=== PATIENT | male | born 1945 | race Caucasian/White ===

== ENCOUNTER → 2019-04-04 10:18 | Outpatient (BNVA) | payer MEDICARE, OTHER, SELFPAY | PROVIDERS: Family Provider Family Medicine; PCP Family Medicine; Visit Provider Family Medicine | DX: I11.0 Hypertensive heart disease with heart failure (principal); I50.30 Unspecified diastolic (congestive) heart failure; B37.2 Candidiasis of skin and nail; E11.9 Type 2 diabetes mellitus without complications | CPT/HCPCS: 80048 ==

== ENCOUNTER → 2019-07-05 10:42 | Outpatient (BNVA) | payer MEDICARE, OTHER, SELFPAY | PROVIDERS: Family Provider Family Medicine; PCP Family Medicine; Visit Provider Family Medicine | DX: I10 Essential (primary) hypertension (principal); E11.9 Type 2 diabetes mellitus without complications; K21.9 Gastro-esophageal reflux disease without esophagitis; E78.5 Hyperlipidemia, unspecified; L30.9 Dermatitis, unspecified; K22.2 Esophageal obstruction; E78.2 Mixed hyperlipidemia | CPT/HCPCS: 80053; 80061; 83036 ==

== ENCOUNTER → 2019-12-31 10:40 | Outpatient (BNVA) | payer MEDICARE, OTHER, SELFPAY | PROVIDERS: Family Provider Family Medicine; PCP Family Medicine; Visit Provider Family Medicine | DX: E11.9 Type 2 diabetes mellitus without complications (principal); I10 Essential (primary) hypertension; E61.1 Iron deficiency; K21.9 Gastro-esophageal reflux disease without esophagitis; Z23 Encounter for immunization; K22.2 Esophageal obstruction; K63.5 Polyp of colon; E78.2 Mixed hyperlipidemia; R74.8 Abnormal levels of other serum enzymes | CPT/HCPCS: 80048; 83036; 85025 ==

== ENCOUNTER 2020-06-13 12:23 | Emergency (ER) | payer MEDICARE, OTHER, SELFPAY ==
[2020-06-13 12:35] VITALS: BP 160/95; PULSE 81; RESP 18; TEMP 36.8; O2SAT 97; BMI 23.7
[2020-06-13 12:54] VITALS: BP 164/90; PULSE 80; RESP 16; O2SAT 97
--- NOTE | 2020-06-13 12:54 | CT_ITS ---
WS: [id number] CT HEAD NONCONTRAST HISTORY: Symptoms of Acute Stroke TECHNIQUE: Contiguous axial imaging performed through the brain in 2.5 mm imaging. Bone and soft tiss ue windows. Sagittal and coronal reformats reviewed. All CT scans at [facility] use at ast one of these dose optimization techniques: automated exposure control; mA and/or kV adjustment pe r patient size (includes targeted exams where dose is matched to clinical indication); or iterative r econstruction. DLP: 843.01 mGy.cm COMPARISON: None available. No acute intracranial hemorrhage, midline shift or mass effect. Mild atrophy and chronic ischemic disease. No evidence for acute sulcal effacement or midline shift. Small lacunar infarcts in the insular ribbons bilaterally. Ventricles: Normal. Small retrocerebellar arachnoid cyst. Paranasal sinuses: As visualized are clear. Mastoid air cells: Well pneumatized. Calvarium and scalp: Skull is intact with no soft tissue edema or swelling. CT/CT head wo con* [id number] IMPRESSION: 1. No evidence for an acute hemorrhage or infarct. No sulcal effacement or camrel ma. 2. Mild atrophy.
--- NOTE | 2020-06-13 12:54 | ECG_ITS ---
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 Measurements Intervals [place] Rate: 75 P: 48 FL: 178 QRS: 20 QRSD: 93 T: 76 QT: 373 QTc: 418 Interpretive Statements SINUS RHYTHM No previous ECG available for comparison Electronically Signed On 06-13-2020 18:10:49 CDT by Cherrie Glaser M.D. [id number]
[2020-06-13 13:08] LABS: Basophils % 0.6 %; Eosinophils # 0.2 10^3/uL (0.0-0.8); Eosinophils % 2.3 %; Hemoglobin 13.4 g/dL (11.7-16.6); Lymphocytes # 0.8 10^3/uL (0.8-4.8); Lymphocytes % 12.3 %; Mean Corpuscular HGB Conc 33.5 g/dL (30.0-36.0); Mean Corpuscular Hemoglobin 28.2 pg (28.0-34.0); Mean Platelet Volume 9.9 fL (7.4-10.4); Monocytes # 0.6 10^3/uL (0.2-0.9); Monocytes % 8.9 %; Neutrophils # 5.16 10^3/uL (1.8-7.7); Neutrophils % 75.3 %; Nucleated Red Blood Cells % 0 %; Platelet Count 256 10^3/cmm (130-400); Red Blood Count 4.76 10^6/uL (4.1-5.3); Red Cell Distribution Width 13.5 % (12.1-15.1); White Blood Count 6.9 10^3/uL (4.0-10.0)
[2020-06-13 13:14] LABS: INR 1.05 (0.8-1.2)
[2020-06-13 13:15] LABS: Partial Thromboplastin Time 25.2 SECONDS (23.9-36.7)
[2020-06-13 13:18] LABS: Alanine Aminotransferase 17 U/L (0-41); Albumin Level 4.6 g/dL (3.5-5.2); Alkaline Phosphatase 112 IU/L (40-130); Anion Gap 15.9 (5-19); Aspartate Amino Transferase 18 U/L (0-40); Blood Urea Nitrogen 17 mg/dL (8-23); Calcium 8.6 mg/dL (8.5-10.5); Carbon Dioxide 23 mmol/L (22-29); Chloride 104 mmol/L (98-107); Globulin 3.4 g/dL (1.3-4.6); Glucose 125 mg/dL (65-115); Osmolality Calculated 291 mOsm/kg (285-295); Potassium 3.9 mmol/L (3.5-5.1); Sodium 139 mmol/L (136-145)
--- NOTE | 2020-06-13 13:19 | ED_ITS ---
HPI - Neuro Symptoms/Deficit General: Chief Complaint: Neuro Symptoms/Deficit Stated Complaint: Both arms numb/Lt side numbness Time Seen by Provider: 06/13/20 12:41 History of Present Illness: HPI Narrative: 75-year-old male presents emergency room with complaint of bilateral arm numbness that began approximately 20 to 21 hours ago. Began yesterday morning around 4 AM shortly after he got up it persisted throughout the day but seems to have been getting better. He had an episode this morning around 4 AM 7 hours prior to presentation where he fell shortly after getting up out of bed to go to the bathroom he had bent over in the bathroom lost his balance and fell over he hit his head but was not lost out he is not had any vomiting or diarrhea. Onset (ago): hour(s) (21 hrs) Timing confirmed by: spouse Location: left arm and right arm History of same: Yes Severity: mild Quality: numb and tingling Relieving factors: time Exacerbating factors: none Context: sudden onset On Anticoagulants: No Associated symptoms: Reports tingling; Deny chest pain, cough, diaphoresis, fevers/chills, headache(s), anorexia, malaise, nausea, seizures, short of breath, syncope, vertigo or vomiting Treatments Prior to Arrival: none Review of Systems Const: Denies: malaise or diaphoresis ENMT: Denies: throat pain, ear or mastoid pain, nasal discharge or nasal congestion Card: Denies: chest pain or syncope Resp: Denies: dyspnea, productive cough or non-productive cough GI: Denies: nausea or vomiting : Denies: flank pain, dysuria, urinary frequency or urinary urgency Skin/Breast: Denies: rash or pruritus Neuro: Denies: headache(s) or vertigo [facility] ED PFSH: Medical History Benign hypertension Controlled type 2 diabetes mellitus GERD with stricture Hyperlipidemia Stroke determined by clinical assessment Surgical History S/P cataract extraction Family History Father Cancer Mother Hypertension Diabetes Son Hypertension Social History Smoking and tobacco status: never smoked Alcohol intake: never Current gender identity: Male NIH stroke score NIHSS: Level Of Consciousness - 1a: 0 Level Of Consciousness Questions - 1b: Both Correct Level Of Consciousness Commands - 1c: Both Correct Best Gaze - 2: Normal Visual Nesbitt - 3: No Visual Loss Facial Palsy - 4: Normal Motor Arm Right - 5: No Drift Motor Arm Left - 5: No Drift Motor Leg Right - 6: No Drift Motor Leg Left - 6: No Drift Limb Ataxia - 7: Absent Sensory - 8: Normal Best Language - 9: No Aphasia Dysarthia - 10: Normal Extinction And Inattention - 11: 0 Score: Total Score: 0 Physical Exam Const: COMMON NORMALS: no acute distress GENERAL APPEARANCE: cooperative and comfortable ORIENTATION/CONSCIOUSNESS: Yes awake, Yes oriented to person, Yes oriented to place and Yes oriented to time HENMT: COMMON NORMALS: normocephalic, atraumatic and hearing grossly normal bilaterally HEAD & SCALP: normocephalic and atraumatic Neck/C-Spine: COMMON NORMALS: no JVD Resp: COMMON NORMALS: normal respiratory effort, No retractions, No use of accessory muscles and clear to auscultation bilaterally AUSCULTATION: clear to auscultation bilaterally Cardio: COMMON NORMALS: no JVD, regular rate, regular rhythm and No murmurs present (Cardio) RATE: regular rate RHYTHM: regular rhythm GI: COMMON NORMALS: Soft to palpation and No hepatosplenomegaly present AUSCULTATION: Yes normoactive bowel sounds PALPATION: Yes Soft to palpation, No Tenderness to palpation present (GI), No Guarding due to palpation present (GI) and Yes No hepatosplenomegaly present Extremity: COMMON NORMALS: normal to inspection, capillary refill normal, no clubbing, cyanosis or edema, no calf tenderness and no pedal edema Neuro: SENSORIUM/ORIENTATION: Yes oriented to person, Yes oriented to place and Yes oriented to time Skin: COMMON NORMALS: no rashes or lesions noted GENERAL SKIN EXAM: no rashes or lesions noted Course Vital Signs: Vital signs: Vital Signs Temperature 98.3 F 06/13/20 12:35 Pulse Rate 72 06/13/20 15:13 Respiratory Rate 18 06/13/20 15:13 Blood Pressure 145/73 06/13/20 15:13 Pulse Oximetry 98 06/13/20 15:13 MDM - Neuro Symptoms/Deficit MDM Narrative: Medical decision making narrative: Symptoms of pretty much resolved at this point they began almost [address] the head is unremarkable and may have a cervical nerve impingement causing the radicular arm pain his stroke score is 0 I think we can safely send him home we will set up for echo and carotids MRI of the head have him take a baby aspirin daily return if has problems follow-up with his primary care doctor may need further evaluation of his symptoms persist if the other initial secondary evaluations are negative. Lab Data: Labs: Lab Results 06/13/20 06/13/20 06/13/20 Range/Units 12:40 12:40 12:40 WBC 6.9 (4.0-10.0) 10^3/ uL RBC 4.76 (4.1-5.3) 10^6/u L Hgb 13.4 (11.7-16.6) g/dL Hct 40.0 L (42.0-52.0) % MCV 84.0 (80-94) fL MCH 28.2 (28.0-34.0) pg MCHC 33.5 (30.0-36.0) g/dL RDW 13.5 (12.1-15.1) % Plt Count 256 (130-400) 10^3/c mm MPV 9.9 (7.4-10.4) fL Neut % (Auto) 75.3 % Lymph % (Auto) 12.3 % [place] % (Auto) 8.9 % Eos % (Auto) 2.3 % Baso % (Auto) 0.6 % Neut # (Auto) 5.16 (1.8-7.7) 10^3/u L Lymph # (Auto) 0.8 (0.8-4.8) 10^3/u L [place] # (Auto) 0.6 (0.2-0.9) 10^3/u L Eos # (Auto) 0.2 (0.0-0.8) 10^3/u L Baso # (Auto) 0.0 (0.0-0.1) 10^3/u L Nucleated RBC % (a uto) 0 % Nucleated RBCs # 0.0 /100WBC PT 14.10 (12.1-14.9) SECO NDS INR 1.05 (0.8-1.2) APTT 25.2 (23.9-36.7) SECO NDS Sodium 139 (136-145) mmol/L Potassium 3.9 (3.5-5.1) mmol/L Chloride 104 (98-107) mmol/L Carbon Dioxide 23 (22-29) mmol/L Anion Gap 15.9 (5-19) BUN 17 (8-23) mg/dL Creatinine 1.7 H (0.7-1.2) mg/dL GFR Calculation Not Reportable Glucose 125 H (65-115) mg/dL POC Glucose (70-110) mg/dL Calculated Osmolal ity 291 (285-295) mOsm/k g Calcium 8.6 (8.5-10.5) mg/dL Total Bilirubin 1.0 (0.15-1.2) mg/dL AST 18 (0-40) U/L ALT 17 (0-41) U/L Alkaline Phosphata se 112 (40-130) IU/L Total Protein 8.0 (6.6-8.7) g/dL Albumin 4.6 (3.5-5.2) g/dL Globulin 3.4 (1.3-4.6) g/dL Urine Color (Yellow) Urine Appearance (CLEAR) Urine pH (5-7) Ur Specific Gravit y (1.005-1.030) Urine Protein (Negative) Urine Glucose (UA) (Normal) Urine Ketones (Negative) Urine Blood (Negative) Urine Nitrate (Negative) Urine Bilirubin (Negative) Urine Urobilinogen (Negative) mg/dL Ur Leukocyte Berna ase (Negative) 06/13/20 06/13/20 Range/Units 13:40 13:41 WBC (4.0-10.0) 10^3/ uL RBC (4.1-5.3) 10^6/u L Hgb (11.7-16.6) g/dL Hct (42.0-52.0) % MCV (80-94) fL MCH (28.0-34.0) pg MCHC (30.0-36.0) g/dL RDW (12.1-15.1) % Plt Count (130-400) 10^3/c mm MPV (7.4-10.4) fL Neut % (Auto) % Lymph % (Auto) % [place] % (Auto) % Eos % (Auto) % Baso % (Auto) % Neut # (Auto) (1.8-7.7) 10^3/u L Lymph # (Auto) (0.8-4.8) 10^3/u L [place] # (Auto) (0.2-0.9) 10^3/u L Eos # (Auto) (0.0-0.8) 10^3/u L Baso # (Auto) (0.0-0.1) 10^3/u L Nucleated RBC % (a uto) % Nucleated RBCs # /100WBC PT (12.1-14.9) SECO NDS INR (0.8-1.2) APTT (23.9-36.7) SECO NDS Sodium (136-145) mmol/L Potassium (3.5-5.1) mmol/L Chloride (98-107) mmol/L Carbon Dioxide (22-29) mmol/L Anion Gap (5-19) BUN (8-23) mg/dL Creatinine (0.7-1.2) mg/dL GFR Calculation Glucose (65-115) mg/dL POC Glucose 105 (70-110) mg/dL Calculated Osmolal ity (285-295) mOsm/k g Calcium (8.5-10.5) mg/dL Total Bilirubin (0.15-1.2) mg/dL AST (0-40) U/L ALT (0-41) U/L Alkaline Phosphata se (40-130) IU/L Total Protein (6.6-8.7) g/dL Albumin (3.5-5.2) g/dL Globulin (1.3-4.6) g/dL Urine Color Yellow (Yellow) Urine Appearance Clear (CLEAR) Urine pH 5 (5-7) Ur Specific Gravit y 1.020 (1.005-1.030) Urine Protein Neg (Negative) Urine Glucose (UA) Trace H (Normal) Urine Ketones 1+ H (Negative) Urine Blood Neg (Negative) Urine Nitrate Negative (Negative) Urine Bilirubin Neg (Negative) Urine Urobilinogen Norm (Negative) mg/dL Ur Leukocyte Berna ase Negative (Negative) Discharge Plan Discharge Patient Disposition: Home Clinical Impression: Peripheral neuropathy, Benign hypertension, Controlled type 2 diabetes mellitus Condition: Stable Prescriptions: New aspirin 81 mg tablet,delayed release (DR/EC) 81 mg PO DAILY Qty: 30 RF: 0 No Action ferrous sulfate [Feosol] 325 mg (65 mg iron) tablet 325 mg PO DAILY RF: 0 (DME) lancets Misc See Rx Instructions .ROUTE .MEDSUPPLY Qty: 100 RF: 11 atorvastatin 20 mg tablet 20 mg PO DAILY 90 Days Qty: 90 RF: 3 glipizide 5 mg tablet extended release 24hr 5 mg PO DAILY 90 Days Qty: 90 RF: 1 lisinopril 30 mg tablet 30 mg PO DAILY 90 Days Qty: 90 RF: 1 metformin 1,000 mg tablet 1,000 mg PO BID 90 Days Qty: 180 RF: 1 omeprazole 20 mg capsule,delayed release(DR/EC) 40 mg PO DAILY 90 Days Qty: 180 RF: 1 (DME) Precision Xtra Test Strip See Rx Instructions .ROUTE .MEDSUPPLY Qty: 300 RF: 3 Discharge Orders: Discharge ED (Routine); Ordered 06/13/20 Ordered By: Pee Fermin Referrals: Jessica Rizvi MD [Primary Care Provider] - Discharge Diet: Usual diet Discharge Activity: Increase activity as tolerated Patient Instructions: Opioid Safety Activity Restrictions/Additional Instructions: Management will call for appointments for echocardiogram carotid duplex MRI of the head. Follow-up with your primary care doctor. If you have worsening symptoms return. Recommend he start taking an aspirin daily. Coding Level of Care Code ED Procurement Buyer for Rebecca Corona Exam Comprehensive
[2020-06-13 13:44] LABS: Glucose Point of Care 105 mg/dL (70-110)
[2020-06-13 13:48] LABS: Add Urine Microscopic? NO
[2020-06-13 13:50] VITALS: BP 145/92; PULSE 77; RESP 19; O2SAT 97
[2020-06-13 13:50] LABS: Urine Appearance Clear (CLEAR); Urine Color Yellow (Yellow); pH Urine 5 (5-7)
[2020-06-13 13:51] LABS: Bilirubin Urine Neg (Negative); Blood Urine Neg (Negative); Glucose Urine UA Trace (Normal); Ketones Urine 1+ (Negative); Leukocyte Esterase Urine Negative (Negative); Nitrate Urine Negative (Negative); Protein Urine Neg (Negative); Urobilinogen Urine Norm (Negative)
[2020-06-13 14:18] VITALS: BP 144/85; PULSE 74; RESP 17; O2SAT 100
[2020-06-13 15:12] VITALS: BP 145/73; PULSE 69; RESP 21; O2SAT 97
[2020-06-13 15:13] VITALS: BP 145/73; PULSE 72; RESP 18; O2SAT 98
--- NOTE | 2020-06-16 15:06 | DCPLANNER ---
manager of employee relations had message to schedule an outpatient echo cardiogram, carotid duplex, and an MRI of the head. manager of employee relations faxed signed order to centralized scheduling, will call for appointment information.
--- NOTE | 2020-06-19 08:32 | DCPLANNER ---
Patient has an outpatient carotid duplex scheduled for Tuesday, July 14, 2020 at 8:45. He also has a Echo scheduled for 07.14.20 at 8:00 and an MRI scheduled for 07.14.20 at 7:15. Centralized scheduling will call patient with the appointment information.
--- NOTE | 2020-07-15 15:38 | DCPLANNER ---
Patient had a follow up appointment scheduled for a carotid duplex and an echo, and MRI - patient did attend all appointments.
== END 2020-06-13 15:16 | disposition home or self-care (01) ==
PROVIDERS: Emergency Provider Family Medicine; PCP Family Medicine
DX: E11.42 Type 2 diabetes mellitus with diabetic polyneuropathy (principal); I10 Essential (primary) hypertension; Z79.84 Long term (current) use of oral hypoglycemic drugs; E78.5 Hyperlipidemia, unspecified; Z86.73 Personal history of transient ischemic attack (TIA), and cerebral infarction without residual deficits
CPT/HCPCS: 36416; 70450; 80053; 81003; 82962; 85025; 85610; 85730; 93005; 99284

== ENCOUNTER 2020-06-29 16:33 | Emergency (ER) | payer MEDICARE, OTHER, SELFPAY ==
[2020-06-29 17:29] VITALS: BP 143/70; PULSE 74; RESP 18; TEMP 36.4; O2SAT 99; BMI 23.1
--- NOTE | 2020-06-29 19:29 | CTR_ITS ---
PROCEDURE INFORMATION: Exam: CT Head Without Contrast Exam date and time: 06/29/2020 7:56 PM Age: 75 years old Clinical indication: Patient HX: C/O sudden onset dizziness w n/v; Additional info: Dizzy TECHNIQUE: Imaging protocol: Computed tomography of the head without contrast. Radiation optimization: All CT scans at this facility use at least one of these dose optimization techniques: automated exposure control; mA and/or kV adjustment per patient size (includes targeted exams where dose is matched to clinical indication); or iterative reconstruction. COMPARISON: CT head wo con* [id number] 06/13/2020 1:59 PM RADIATION DOSE METRICS: Total DLP (mGy-cm): 864.67 FINDINGS: Brain: No evidence of acute infarct. No mass or mass effect. No intra axial hemorrhage. No extra axial fluid collection or hemorrhage. Scattered white matter hypodensities likely from chronic microvascular ischemic disease. Global brain volume loss, likely age related. Cerebral ventricles: Symmetric and without enlargement. Bones/joints: No acute fracture. Paranasal sinuses: Visualized sinuses are well aerated. Mastoid air cells: Visualized mastoid air cells are well aerated. Soft tissues: No concerning abnormalities. CT/CT head wo con* [id number] IMPRESSION: No acute intracranial abnormality. Radiation Dose CTDIVOL = (mGy): DLP = 864.67 (mGy-cm)
--- NOTE | 2020-06-29 19:29 | XRR_ITS ---
PROCEDURE INFORMATION: Exam: XR Chest Exam date and time: 06/29/2020 7:33 PM Age: 75 years old Clinical indication: Other: Dizzy, vomiting TECHNIQUE: Imaging protocol: XR of the chest. Views: 1 view. COMPARISON: No relevant prior studies available. FINDINGS: Lungs: Vague small irregular density at the right upper lung near a focal superficial external structure which could be external versus underlying summation of densities, pleuroparenchymal scarring. Pleural spaces: Unremarkable. No pleural effusion. No pneumothorax. Heart/Mediastinum: Unremarkable. No cardiomegaly. Bones/joints: Degenerative change of the spine. XR/XR chest 1V portable [id number] IMPRESSION: 1. No acute cardiopulmonary process. 2. Indeterminate density right upper lung near the margin of external rounded radiopaque structure as described above. Consider repeat frontal chest with removal of external material for complete exclusion of an abnormal irregular nodular opacity at the right upper lobe.
--- NOTE | 2020-06-29 19:29 | ECG_ITS ---
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 Measurements Intervals [place] Rate: 74 P: 179 [place]: 174 QRS: 197 QRSD: 89 T: 154 QT: 377 QTc: 420 Interpretive Statements Sinus rhythm POSSIBLE RIGHT VENTRICULAR HYPERTROPHY [SOME/ALL OF: PROMINENT R IN V1, LATE TRANSITION, RAD, ASHKAN, SSS] MODERATE ST DEPRESSION [0.05+ mV ST DEPRESSION] Compared to ECG 06/13/2020 13:05:42 Ectopic atrial rhythm now present ST (T wave) deviation now present Sinus rhythm no longer present Electronically Signed On 06-30-2020 20:13:00 CDT by Mynor Rowley M.D. [id number]
[2020-06-29 20:01] LABS: Basophils # 0.1 10^3/uL (0.0-0.1); Eosinophils # 0.1 10^3/uL (0.0-0.8); Eosinophils % 0.7 %; Hematocrit 39.4 % (42.0-52.0); Lymphocytes # 0.5 10^3/uL (0.8-4.8); Lymphocytes % 5.4 %; Mean Corpuscular Hemoglobin 28.2 pg (28.0-34.0); Mean Corpuscular Volume 85.5 fL (80-94); Monocytes # 0.3 10^3/uL (0.2-0.9); Monocytes % 3.1 %; Neutrophils # 7.42 10^3/uL (1.8-7.7); Neutrophils % 89.4 %; Nucleated Red Blood Cells % 0 %; Platelet Count 257 10^3/cmm (130-400); Red Blood Count 4.61 10^6/uL (4.1-5.3); Red Cell Distribution Width 13.5 % (12.1-15.1); White Blood Count 8.3 10^3/uL (4.0-10.0)
[2020-06-29 20:21] LABS: Alanine Aminotransferase 12 U/L (0-41); Albumin Level 4.9 g/dL (3.5-5.2); Alkaline Phosphatase 101 IU/L (40-130); Aspartate Amino Transferase 16 U/L (0-40); Blood Urea Nitrogen 16 mg/dL (8-23); Calcium 8.8 mg/dL (8.5-10.5); Carbon Dioxide 23 mmol/L (22-29); Chloride 102 mmol/L (98-107); Creatine Phosphokinase 92 U/L (39-308); Globulin 2.8 g/dL (1.3-4.6); Glucose 122 mg/dL (65-115); Osmolality Calculated 286 mOsm/kg (285-295); Sodium 137 mmol/L (136-145); Total Bilirubin 0.7 mg/dL (0.15-1.2); Total Protein 7.7 g/dL (6.6-8.7)
[2020-06-29 20:22] LABS: Anion Gap 17.1 (5-19); Potassium 5.1 mmol/L (3.5-5.1)
[2020-06-29 20:24] LABS: Troponin(5th) Baseline 14 ng/L (0-15)
[2020-06-29] MEDS: sodium chloride 0.9% 500 ML 999 ML IV (20:37)
[2020-06-29] MEDS: ondansetron 2 mg/ML SDV 2 mL 4 MG IVP (20:37)
[2020-06-29] MEDS: haloperidol inj 5 mg/mL INJ 1 mL 2 MG IVP (20:38)
[2020-06-29 20:39] VITALS: BP 140/98; PULSE 81; RESP 18; O2SAT 98
--- NOTE | 2020-06-29 20:57 | ED_ITS ---
HPI - Dizziness General: Chief Complaint: Dizziness Stated Complaint: DIZZY, VOMITING Time Seen by Provider: 06/29/20 19:26 History of Present Illness: HPI Narrative: 75-year-old male with a history of tinnitus and vertigo. He states that around noon today he began to vomit with movement. He is fine sitting or lying down, but if he gets up, he gets extremely dizzy, vertiginous, nauseated, and usually vomits. He is vomited several times today. Denies fever. He does state that he had an episode a couple of weeks ago of left-sided weakness, from which she is beginning to recover. He was told that his scans were negative when he was seen for that. He has an MRI set up for later this month. He does not have any language problems, vision blind spots, etc. MD elicited complaint: dizziness and vertigo Pertinent past history: inner ear problems and Meniere's disease (Probably by history) Onset (ago): hour(s) Timing: gradual onset Severity: similar to previous episodes Description: room spinning Context: change in body position History of similar symptoms: Yes Exacerbating factors: movement/ambulation and change in body position Relieving factors: remaining still Associated symptoms: Reports nausea, tinnitus and vomiting; Denies chest pain, chills, ear discharge, fevers/chills or headache(s) Associated neuro symptoms: Reports extremity weakness (This happened a couple of weeks ago and is improving); Deny confusion, difficulty speaking, dysphagia, diplopia, facial numbness, facial weakness or numbness in extremities Review of Systems Const: Denies: fever(s) or chills Eyes: Denies: change in vision ENMT: Reports: tinnitus; Denies: ear discharge Card: Denies: chest pain Resp: Denies: dyspnea or productive cough GI: Reports: nausea and vomiting; Denies: dysphagia : Denies: difficulty urinating or hematuria Musc: Denies: neck pain Skin/Breast: Denies: rash Neuro: Denies: headache(s), numbness in extremities or confusion Psych: Denies: anxiety PFSH ED PFSH: Medical History Benign hypertension Controlled type 2 diabetes mellitus GERD with stricture Hyperlipidemia Stroke determined by clinical assessment Surgical History S/P cataract extraction Family History Father Cancer Mother Hypertension Diabetes Son Hypertension Social History Smoking and tobacco status: never smoked Alcohol intake: never Current gender identity: Male Physical Exam Const: GENERAL APPEARANCE: well developed ORIENTATION/CONSCIOUSNESS: Yes oriented to person, Yes oriented to place and Yes oriented to time HENMT: COMMON NORMALS: normocephalic, external ears normal and Normal external nose present HEAD & SCALP: normocephalic FACE & SINUS: normal facial exam NOSE: Normal external nose present and No nasal discharge present EXTERNAL EAR: Yes external ears normal Eye: COMMON NORMALS: Equal, round and reactive pupils present, EOMs intact bilaterally and conjunctivae normal EYELID: eyelids normal CONJUNCTIVA: Yes conjunctivae normal PUPIL: Yes Equal, round and reactive pupils present Neck/C-Spine: GENERAL: No tracheal deviation Chest: COMMONS NORMALS: normal inspection of the chest CHEST: No tenderness Resp: COMMON NORMALS: clear to auscultation bilaterally EFFORT & INSPECTION: No tachypneic, No respiratory distress, No retractions, No uses accessory muscles and No tracheal deviation AUSCULTATION: clear to aus cultation bilaterally, no rhonchi, no wheezes and lung sounds not diminished Cardio: COMMON NORMALS: regular rate and regular rhythm RATE: regular rate RHYTHM: regular rhythm PERIPHERAL PULSES: radial pulses present GI: INSPECTION: No abdominal distension AUSCULTATION: No Hyperactive bowel sounds present and No Hypoactive bowel sounds present Neuro: GREGORY COMA SCALE: document GCS findings [place] coma scale eye opening: Spontaneous Gregory coma scale verbal response: Orientated Gregory coma scale motor response: Obey commands [place] coma scale total score: 15 SENSORIUM/ORIENTATION: Yes oriented to person, Yes oriented to place and Yes oriented to time CRANIAL NERVES: Yes CN normal except as noted COORDINATION/BALANCE: [id number]-[id number] test normal and wurv-gh-[id number] test normal SPEECH: speech normal GAIT: Yes Unable to assess gait SENSORY EXAM: Yes extremities (intact) MOTOR EXAM: Pronator motor function not present COORDINATION: pjkvye-lz-sigb test normal and yjsu-ls-mvrt test normal Psych: COMMON NORMALS: mental status grossly normal Skin: COMMON NORMALS: no rashes or lesions noted GENERAL SKIN EXAM: no rashes or lesions noted Course Vital Signs: Vital signs: Vital Signs Temperature 97.5 F L 06/29/20 17:29 Pulse Rate 91 06/29/20 22:30 Respiratory Rate 21 H 06/29/20 22:30 Blood Pressure 161/125 06/29/20 22:30 Pulse Oximetry 95 06/29/20 22:30 MDM - Dizziness MDM Narrative: Medical decision making narrative: NIH scale is 0, although he does note that his left leg feels heavier than the right. There is no drift. This is suspicious for positional vertigo versus M?ni?re's disease, as he does have significant tinnitus and a history of some hearing loss. His creatinine is elevated. His other laboratory is benign. His CT of the head is negative. Is received Zofran and a small dose of Haldol with improvement in his nausea. We will discharge him on meclizine and Ativan. He has a primary care appointment tomorrow, an MRI later this month. Lab Data: Labs: Lab Results 06/29/20 06/29/20 06/29/20 Range/Units 19:50 19:50 19:50 WBC 8.3 (4.0-10.0) 10^3/ uL RBC 4.61 (4.1-5.3) 10^6/u L Hgb 13.0 (11.7-16.6) g/dL Hct 39.4 L (42.0-52.0) % MCV 85.5 (80-94) fL MCH 28.2 (28.0-34.0) pg MCHC 33.0 (30.0-36.0) g/dL RDW 13.5 (12.1-15.1) % Plt Count 257 (130-400) 10^3/c mm MPV 10.0 (7.4-10.4) fL Neut % (Auto) 89.4 % Lymph % (Auto) 5.4 % [place] % (Auto) 3.1 % Eos % (Auto) 0.7 % Baso % (Auto) 1.0 % Neut # (Auto) 7.42 (1.8-7.7) 10^3/u L Lymph # (Auto) 0.5 L (0.8-4.8) 10^3/u L [place] # (Auto) 0.3 (0.2-0.9) 10^3/u L Eos # (Auto) 0.1 (0.0-0.8) 10^3/u L Baso # (Auto) 0.1 (0.0-0.1) 10^3/u L Nucleated RBC % (a uto) 0 % Nucleated RBCs # 0.0 /100WBC Sodium 137 (136-145) mmol/L Potassium 5.1 (3.5-5.1) mmol/L Chloride 102 (98-107) mmol/L Carbon Dioxide 23 (22-29) mmol/L Anion Gap 17.1 (5-19) BUN 16 (8-23) mg/dL Creatinine 1.4 H (0.7-1.2) mg/dL GFR Calculation Not Reportable Glucose 122 H (65-115) mg/dL Calculated Osmolal ity 286 (285-295) mOsm/k g Calcium 8.8 (8.5-10.5) mg/dL Total Bilirubin 0.7 (0.15-1.2) mg/dL AST 16 (0-40) U/L ALT 12 (0-41) U/L Alkaline Phosphata se 101 (40-130) IU/L Creatine Kinase 92 (39-308) U/L Troponin T Baselin e 14 (0-15) ng/L Total Protein 7.7 (6.6-8.7) g/dL Albumin 4.9 (3.5-5.2) g/dL Globulin 2.8 (1.3-4.6) g/dL Discharge Plan Discharge Patient Disposition: Home Clinical Impression: Benign paroxysmal positional vertigo Qualifiers: Laterality: unspecified laterality Qualified Code(s): H81.10 - Benign paroxysmal vertigo, unspecified ear Condition: Stable Prescriptions: New meclizine 25 mg tablet 25 mg PO TID PRN (Reason: dizziness) Qty: 60 RF: 0 Ativan 0.5 mg tablet 0.5 mg PO Q6H PRN (Reason: dizziness or vertigo) Qty: 14 RF: 0 No Action ferrous sulfate [Feosol] 325 mg (65 mg iron) tablet 325 mg PO DAILY RF: 0 (DME) lancets Misc See Rx Instructions .ROUTE .MEDSUPPLY Qty: 100 RF: 11 atorvastatin 20 mg tablet 20 mg PO DAILY 90 Days Qty: 90 RF: 3 glipizide 5 mg tablet extended release 24hr 5 mg PO DAILY 90 Days Qty: 90 RF: 1 lisinopril 30 mg tablet 30 mg PO DAILY 90 Days Qty: 90 RF: 1 metformin 1,000 mg tablet 1,000 mg PO BID 90 Days Qty: 180 RF: 1 omeprazole 20 mg capsule,delayed release(DR/EC) 40 mg PO DAILY 90 Days Qty: 180 RF: 1 (DME) Precision Xtra Test Strip See Rx Instructions .ROUTE .MEDSUPPLY Qty: 300 RF: 3 aspirin 81 mg tablet,delayed release (DR/EC) 81 mg PO DAILY Qty: 30 RF: 0 Discharge Orders: Discharge ED (Routine); Ordered 06/29/20 Ordered By: Isaac Yeung Referrals: Jessica Rizvi MD [Primary Care Provider] - 1-3 days (tomorrow as directed) Discharge Diet: Advance as tolerated Discharge Activity: Increase activity as tolerated Patient Instructions: Vertigo (ED) Activity Restrictions/Additional Instructions: Return for vision or language problems, worsening weakness, worsening dizziness despite treatment, other concerning symptoms. See your doctor tomorrow as directed. Use the meclizine 3 times daily, if you are still having dizziness, lorazepam every 6 hours as needed will help as well. Coding Level of Care Code ED Wool Cleaner for Rebecca Fwd Exam Comprehensive
[2020-06-29 21:05] VITALS: BP 169/97; BP 177/96; BP 200/107; PULSE 106; PULSE 92; PULSE 94
[2020-06-29] MEDS: meclizine 25 mg tablet PO (21:40)
[2020-06-29] MEDS: labetalol 5 mg/mL SDV 20mL 20 MG IVP (21:41)
[2020-06-29 21:43] VITALS: BP 191/97; PULSE 100; RESP 16; O2SAT 98
[2020-06-29] MEDS: amlodipine 10 mg Tablet PO (22:11)
[2020-06-29 22:30] VITALS: BP 161/125; PULSE 91; RESP 21; O2SAT 95
== END 2020-06-29 22:17 | disposition home or self-care (01) ==
PROVIDERS: Emergency Provider Emergency Medicine; PCP Family Medicine
DX: H81.10 Benign paroxysmal vertigo, unspecified ear (principal); Z79.84 Long term (current) use of oral hypoglycemic drugs; Z79.82 Long term (current) use of aspirin; E11.9 Type 2 diabetes mellitus without complications; E78.5 Hyperlipidemia, unspecified; Z86.73 Personal history of transient ischemic attack (TIA), and cerebral infarction without residual deficits
CPT/HCPCS: 70450; 71045; 80053; 82550; 84484; 85025; 93005; 96374; 96375; 99284; J1630; J2405; J3490; J7040; J8597

== ENCOUNTER → 2020-06-30 09:16 | Outpatient (BNVA) | payer MEDICARE, OTHER, SELFPAY | PROVIDERS: PCP Family Medicine; Visit Provider Family Medicine | DX: E78.2 Mixed hyperlipidemia (principal); E11.22 Type 2 diabetes mellitus with diabetic chronic kidney disease; N18.32 Chronic kidney disease, stage 3b | CPT/HCPCS: 80061; 83036 ==

== ENCOUNTER 2020-07-14 06:52 | Outpatient (CLI) | payer MEDICARE, OTHER, SELFPAY ==
--- NOTE | 2020-07-14 | MR_ITS ---
WS: [id number] MRI BRAIN WITHOUT CONTRAST HISTORY: TIA COMPARISON: Head CT 06/29/2020 TECHNIQUE: Diffusion imaging, multiplanar T1, T2 and FLAIR imaging obtained. Subacute lacunar infarct in the posterior RIGHT frontal lobe subcortical white matter. ADC mapping gonzalez s returned to normal. Increased signal on the T2 sequences. There is still increased signal involving a small portion of the lacunar infarct on the diffusion sequence. There is no associated hemorrhage. No additional diffusion abnormality. There are small subcortical white matter lacunar infarcts bilate rally predominantly in the frontal and parietal lobes. Slightly greater number of infarcts on the LEF T. Mild chronic microvascular ischemic disease otherwise. Mild bilateral symmetric atrophy. Ventricles and extra-axial spaces are normal. No inferior displacement of cerebellar tonsils. The sella turcica and pituitary gland are unremarkabl e. Dural venous sinuses and [place] demonstrate no abnormality on this unenhanced studies. Paranasal sinuses: Clear. Mastoid air cells: Normal. Calvarium and scalp: Intact. MR/MR head wo con* [id number] IMPRESSION: 1. Subacute, nonhemorrhagic lacunar infarct in the posterior RIGHT frontal lob e. 2. Additional prior lacunar infarcts bilaterally in the frontal and parietal l obes, slightly greater in number on the LEFT. 3. Mild atrophy and mild chronic microvascular ischemic disease.
--- NOTE | 2020-07-14 08:20 | USCV_ITS ---
Familia Oumar Age: 75 Gender: M : 1945 Exam Date: 07/14/2020 08:51 Ordering Phys: Pee Fermin DO Technologist: [place] [facility] [place]: [place] Risk Factors: None Previous Vascular Surgery: None Right Brachial BP: / Left Brachial BP: / Right Left Velocity (cm/s) Spectral Plaque Velocity (cm/s) Spectral Plaque Syst/Diast Broadening Syst/Diast Broadening 57.80/ 12.50 Prox CCA 74.30 / 17.90 52.60/ 9.90 Mid CCA 78.60 / 16.20 53.20/ 7.90 Distal CCA 73.50 / 19.70 59.20/ 13.80 Prox ICA 86.30 / 22.20 69.70/ 16.40 Mid ICA 80.30 / 26.50 98.60/ 25.00 Distal ICA 101.70/ 29.90 89.40 ECA 77.80 1.70 ICA/CCA 1.29 Antegrade Vertebral Antegrade 56.40/ 5.10 cm/s 51.30/ 13.70 cm/s Tri Subclavian Tri 79.50 FINDINGS Comparison: none available. No significant elevation of systolic or diastolic velocities. Waveforms are normal. No significant amount of calcified plaque or intimal thickening identified. CONCLUSIONS Normal carotid doppler ultrasound. Dr. Yolis Segura DO (Electronically Signed) Final Date: 14 July 2020 13:53 S
--- NOTE | 2020-07-14 08:20 | USCV_ITS ---
Oumar Barbosa Age: 75 Gender: M : 1945 Exam Date: 07/14/2020 08:42 Ordering Phys: Pee Fermin DO Technologist: Tereso Hardin [place] [facility] [place]: CAD BP: 124 / 80 HR: 72 Rhythm: Sinus Technical Quality: Good MEASUREMENTS (Male / Female) Normal Values 2D ECHO LV Diastolic Diameter PLAX 3.6 cm 4.2 - 5.9 / 3.9 - 5.3 cm LV Systolic Diameter PLAX 2.8 cm IVS Diastolic Thickness 1.0 cm 0.6 - 1.0 / 0.6 - 0.9 cm IVS Systolic Thickness 1.5 cm LVPW Diastolic Thickness 0.9 cm 0.6 - 1.0 / 0.6 - 0.9 cm LVPW Systolic Thickness 1.4 cm LVOT Diameter 2.0 cm LV Ejection Fraction 2D Teich 46.3 % LV Ejection Fraction MOD 2C 56.4 % LV Ejection Fraction 2C AL 56.8 % LA Diameter 2.9 cm LA Width 4.0 cm LA Height 4.2 cm RA Width 3.5 cm RA Height 5.0 cm DOPPLER AV Peak Velocity 115.0 cm/s LVOT Peak Velocity 96.0 cm/s AV Area Cont Eq vti 2.7 cm squared AV Area Cont Eq pk 2.6 cm squared MV Area PHT 5.0 cm squared Mitral E to A Ratio 0.9 MV E' Velocity 48.0 cm/s Mitral E to MV E' Ratio 10.4 Mitral E to LV E' Lateral Ratio 8.6 Mitral E to LV E' Septal Ratio 13.2 TR Peak Velocity 141.3 cm/s TR Peak Gradient 8.0 mmHg TV Peak E Velocity 101.0 cm/s Right Atrial Pressure 3.0 mmHg Pulmonary Artery Systolic Pressu 11.0 mmHg FINDINGS Left Ventricle Normal left ventricular size, systolic function and wall thickness, with no regional wall motion abnormalities. Left ventricular ejection fraction is estimated at 65 %. Grade I diastolic dysfunction (abnormal relaxation filling pattern), normal to mildly elevated filling pressures. Right Ventricle Normal right ventricular size and systolic function. Right ventricular systolic pressure 11 mmHg. Right Atrium Normal right atrial size. Left Atrium Normal left atrial size. Mitral Valve Structurally normal mitral valve. No mitral valve stenosis. Trace mitral valve regurgitation. Aortic Valve Aortic valve not well visualized. Probably trileaflet aortic valve. No aortic valve stenosis. No aortic valve regurgitation. Tricuspid Valve Structurally normal tricuspid valve. Pulmonic Valve Pulmonic valve not well visualized. No pulmonary valve stenosis. Trace pulmonary valve regurgitation. Pericardium No pericardial effusion. Aorta Normal size aortic root and proximal ascending aorta. CONCLUSIONS 1. Normal left ventricular size, systolic function and wall thickness, with no regional wall motion abnormalities. Left ventricular ejection fraction is estimated at 65 %. Grade I diastolic dysfunction (abnormal relaxation filling pattern), normal to mildly elevated filling pressures. 2. Normal right ventricular size and systolic function. 3. Normal pulmonary artery pressure. 4. No significant valvular abnormality. 5. No prior similar studies to compare. Cherrie Glaser MD (Electronically Signed) Final Date: 14 July 2020 16:04 S
== END 2020-07-14 06:53 | disposition home or self-care (01) ==
LOC: RADSHAW 06:54
PROVIDERS: PCP Family Medicine; Visit Provider Family Medicine
DX: G45.9 Transient cerebral ischemic attack, unspecified (principal); I25.10 Atherosclerotic heart disease of native coronary artery without angina pectoris; I63.9 Cerebral infarction, unspecified; I67.82 Cerebral ischemia; G31.9 Degenerative disease of nervous system, unspecified
CPT/HCPCS: 70551; 93306; 93880